=== PATIENT | male | born 1990 | race African-American/Black ===

== ENCOUNTER 2019-04-02 03:23 | Emergency (ER) | payer BC, SELFPAY ==
[2019-04-02] MEDS ORDERED: Dicyclomine 20 MG TAB ONE (03:47)
[2019-04-02 04:08] LABS: #Basophils 0.1 thou/uL (0.0-0.2); #Eosinphils 0.2 thou/uL (0.0-0.7); #Lymphocytes 2.5 thou/uL (1.20-3.40); #Monocytes 0.8 thou/uL (0.11-0.59); #Neutrophils 6.2 thou/uL (1.40-6.50); %Basophils 0.6 % (0.0-1.0); %Eosinophils 1.9 % (0.0-10.0); %Lymphocytes 25.4 % (21.0-51.0); %Monocytes 7.8 % (0.0-10.0); %Neutrophils 64.3 % (42.0-75.0); Hemoglobin 13.9 g/dL (14.0-18.0); Mean Corpuscular HGB CONC 31.1 g/dL (32.0-36.0); Mean Corpuscular Hemoglobin 27.7 pg (27.0-31.0); Mean Corpuscular Volume 89.2 fL (78.0-98.0); Mean Platelet Volume 9.4 fL (7.4-10.4); Platelet Count 267 thou/uL (130-400); RBC Distribution Width 11.8 % (11.5-14.5); Red Blood Cell (RBC) Count 5.02 mill/uL (4.70-6.10); White Blood Cell (WBC) Count 9.7 thou/uL (4.8-10.8)
[2019-04-02 04:31] LABS: ALT (SGPT) 30 U/L (8-55); AST (SGOT) 21 U/L (5-34); Albumin 4.1 g/dL (3.5-5.0); Alkaline Phosphatase 82 U/L (40-150); Anion Gap 12 mmol/L (10-20); BUN (Urea Nitrogen) 12 mg/dL (8.9-20.6); Bilirubin, Total 0.5 mg/dL (0.2-1.2); Calc. Creatinine Clearance 0 mL/min (70-130); Calcium 10.1 mg/dL (7.8-10.44); Carbon Dioxide 29 mmol/L (22-29); Chloride 104 mmol/L (98-107); Estimated GFR-MDRD Greater than 90; Globulin 3.1 g/dL (2.4-3.5); Glucose 117 mg/dL (70-105); Lipase 15 U/L (8-78); Potassium 3.8 mmol/L (3.5-5.1); Protein, Total 7.2 g/dL (6.0-8.3); Sodium 141 mmol/L (136-145)
== END 2019-04-02 04:36 | disposition home or self-care (01) ==
LOC: ERS 03:23
DX: K52.9 Noninfective gastroenteritis and colitis, unspecified (principal)
CPT/HCPCS: 36415; 80053; 83690; 85025; 99283

== ENCOUNTER 2019-12-25 13:47 | Emergency (ER) | payer BC | END 2019-12-25 14:44 | disposition home or self-care (01) | LOC: ERS 13:47 | DX: R04.0 Epistaxis (principal) | CPT/HCPCS: 99283 ==

== ENCOUNTER 2020-11-13 10:26 | Emergency (ER) | payer BC | END 2020-11-13 11:23 | disposition home or self-care (01) | LOC: ERS 10:26 | DX: J02.0 Streptococcal pharyngitis (principal); I10 Essential (primary) hypertension | CPT/HCPCS: 87430; 99283 ==

== ENCOUNTER 2021-02-24 07:39 | Emergency (ER) | payer BC ==
[2021-02-24] MEDS ORDERED: Ibuprofen 800 MG TAB ONE (08:07)
== END 2021-02-24 08:35 | disposition home or self-care (01) ==
LOC: ERS 07:39
DX: M54.5 Low back pain (principal); G89.29 Other chronic pain; I10 Essential (primary) hypertension; Z87.891 Personal history of nicotine dependence
CPT/HCPCS: 99283

== ENCOUNTER 2021-06-24 07:22 | Emergency (ER) | payer BC ==
[2021-06-24] MEDS ORDERED: Ibuprofen 800 MG TAB ONE (07:51)
[2021-06-24 12:19] LABS: SARS-CoV-2 PCR by NAA Not Detected (NotDetected)
== END 2021-06-24 09:25 | disposition home or self-care (01) ==
LOC: ERS 07:22
DX: J02.9 Acute pharyngitis, unspecified (principal); Z20.822 Contact with and (suspected) exposure to COVID-19; I10 Essential (primary) hypertension; Z87.891 Personal history of nicotine dependence; Z79.899 Other long term (current) drug therapy
CPT/HCPCS: 87081; 87430; 99283; U0003; U0005

== ENCOUNTER 2021-09-13 11:01 | Emergency (ER) | payer BC, OTHER ==
[2021-09-13] MEDS ORDERED: Acetaminophen 500 MG TAB ONE (13:14)
[2021-09-13] MEDS ORDERED: Ibuprofen 800 MG TAB ONE ×2 (13:14→13:50)
[2021-09-13 20:35] LABS: SARS-CoV-2 PCR by NAA Not Detected (NotDetected)
== END 2021-09-13 14:30 | disposition home or self-care (01) ==
LOC: ERS 11:01
DX: J02.0 Streptococcal pharyngitis (principal); Z20.822 Contact with and (suspected) exposure to COVID-19
CPT/HCPCS: 87430; 87804; 99284; U0003; U0005

== ENCOUNTER 2022-01-16 12:10 | Emergency (ER) | payer BC, OTHER | END 2022-01-16 13:47 | disposition home or self-care (01) | LOC: ERS 12:10 | DX: S61.213A Laceration without foreign body of left middle finger without damage to nail, initial encounter (principal); W19.XXXA Unspecified fall, initial encounter ==